=== PATIENT | female | born 1990 | race Caucasian/White ===

== ENCOUNTER 2023-10-21 07:27 | Outpatient (RCR) | payer OTHER, SELFPAY ==
--- NOTE | ~2023-10-21 | US_ITS ---
EXAMINATION: US OB BPP wo non-stress DATE: 10/21/2023 09:07 INDICATION: Decreased movement. Third trimester. TECHNIQUE: Real-time pelvic ultrasound was performed. COMPARISON: None. FINDINGS: There is a single living fetus in vertex presentation. The placenta is anterior. heart rate is 143 beats per minute (bpm). Biophysical profile performed by the technologist: breathing (30 sec sustained breathing in 30 minutes): 2 out of 2 movement (3 gross body movements in 30 minutes): 2 out of 2 tone (one episode of ustpogy-ibaxaqwse-wnunhsz limb movement): 2 out of 2 Amniotic fluid pocket (2 cm): 2 out of 2 Total score: 8 out of 8 IMPRESSION: 1. Single living fetus in vertex presentation. 2. Biophysical profile 8 out of 8. Reviewed, dictated and finalized at location A.
[2023-10-21 09:30] VITALS: BP 121/56; PULSE 70
== END 2024-01-19 23:59 | disposition home or self-care (01) ==
LOC: ANHOBOP 07:27
PROVIDERS: Visit Provider Obstetrics & Gynecology
DX: O36.8130 Decreased fetal movements, third trimester, not applicable or unspecified (principal); Z3A.37 37 weeks gestation of pregnancy
CPT/HCPCS: 59025; 76819